=== PATIENT | female | born 1955 | race Caucasian/White ===

== ENCOUNTER 2025-04-24 17:04 | Emergency (ER) | payer MEDICARE, BC ==
[~2025-04-24] VITALS: Ht 172.7 cm; Wt 77.1 kg
[2025-04-24 17:36] LABS: PLATELET COUNT (AUTO) 233 K/uL (150-450); RED BLOOD CELL COUNT(AUTO) 4.71 MIL/uL (4.0-5.2); RED CELL DISTRIBUTION WIDTH 14.0 % (11.5-15.0); WHITE BLOOD COUNT (AUTO) 6.7 K/uL (4.3-11.0)
[2025-04-24 17:42] LABS: CALCIUM, SERUM 8.6 mg/dL (8.5-10.1); CREATININE 1.0 mg/dL (0.6-1.3); SODIUM SERUM 139.0 mmol/L (136-145); UREA NITROGEN, BLOOD 17.0 mg/dL (7-18)
[2025-04-24 17:47] LABS: INR 0.92 (0.91-1.10)
[2025-04-24 17:58] VITALS: BP 141/81; TEMP 98.1; O2SAT 98
== END 2025-04-24 17:58 | disposition home or self-care (01) ==
LOC: ER 17:17
DX: M79.605 Pain in left leg (principal); I10 Essential (primary) hypertension; E11.9 Type 2 diabetes mellitus without complications
CPT/HCPCS: 36415; 80048-TC; 85025-TC; 85730-TC; 93971-TC